=== PATIENT | female | born 1980 | race Caucasian/White ===

== ENCOUNTER 2018-10-30 16:28 | Emergency (ER) | payer BC ==
[2018-10-30] MEDS ORDERED: ONDANSETRON HCL 4 MG/2 ML SOL ONE (16:51)
[2018-10-30] MEDS ORDERED: MORPHINE SULFATE 10 MG/ML SOL ONE (16:51)
[2018-10-30] MEDS: ONDANSETRON HCL 4 MG/2 ML SOL IV ONE (16:55)
[2018-10-30] MEDS: MORPHINE SULFATE 10 MG/ML SOL IV ONE (16:58)
[2018-10-30 17:36] VITALS: RESP 16; TEMP 99.3
[2018-10-30] MEDS: SODIUM CHLORIDE 0.9% 1000ML 1,000 ML IV ONE (18:00)
[2018-10-30] MEDS ORDERED: HYDROMORPHONE 1 MG/ML SYRINGE ONE ×2 (18:07→18:58)
[2018-10-30] MEDS: HYDROMORPHONE HCL 2 MG/ML SOL IV ONE (18:09)
[2018-10-30] MEDS ORDERED: PIPERACILLIN/TAZOBACT 3.375 GM PDS IV ONE (18:16)
[2018-10-30] MEDS: PIPERACILLIN/TAZOBACT 3.375 GM 3.375 GM in SODIUM CHLORIDE 0.9% 100 ML 100 ML IV ONE (18:17)
[2018-10-30 18:24] VITALS: BP 120/78; PULSE 92; O2SAT 96
[2018-10-30] MEDS: HYDROMORPHONE 1 MG/ML SYRINGE IV PRN (19:02)
== END 2018-10-30 19:16 | disposition short-term general hospital (02) ==
LOC: ED 16:28
DX: K37 Unspecified appendicitis (principal); R10.31 Right lower quadrant pain
CPT/HCPCS: 36415; 74177; 83690; 96365; 96374; 96375; 99070; 99283; 99285; J2270; J2405; J2543; Q9967; J1170